=== PATIENT | male | born 2000 | race Caucasian/White ===

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

== ENCOUNTER 2019-01-27 13:18 | Emergency (ER) | payer OTHER ==
[2019-01-27 13:23] VITALS: BP 110/62; PULSE 90; TEMP 98.4; BMI 25.8
--- NOTE | 2019-01-27 15:12 | PDOC ---
History of Present Illness - General Chief Complaint: Headache Stated Complaint: HEAD HURT Time Seen by Provider: 01/27/19 14:56 History Source: Patient Exam Limitations: No Limitations Past History - Past Medical History Allergies/Adverse Reactions: Allergies Allergy/AdvReac Type Severity Reaction Status Date / Time peanut Allergy Verified 01/27/19 13:23 shellfish derived Allergy Verified 01/27/19 13:23 Home Medications: Ambulatory Orders NK [No Known Home Medication] 09/27/16 Asthma: Yes COPD: No - Immunization History Immunization Up to Date: Yes - Psycho Social/Smoking Cessation Hx Smoking History: Never smoked Have you smoked in the past 12 months: No Information on smoking cessation initiated: No Hx Alcohol Use: No Drug/Substance Use Hx: No *Physical Exam - Vital Signs Last Vital Signs Temp Pulse Resp BP Pulse Ox 98.4 F 90 17 110/62 99 01/27/19 13:20 01/27/19 13:20 01/27/19 13:20 01/27/19 13:20 01/27/19 13:20 - Physical Exam General Appearance: No: Apparent Distress HEENT: positive: Other (no evidence of head trauma) Neck: positive: Supple. negative: Decreased range of motion, Tender midline Respiratory/Chest: positive: Lungs Clear, Normal Breath Sounds. negative: Respiratory Distress Cardiovascular: positive: Regular Rhythm, Regular Rate, S1, S2. negative: Murmur Neurologic: positive: head of physics II-XII NML intact, Fully Oriented, Alert, Normal Mood/ Affect, Motor Strength 5/5 Medical Decision Making - Medical Decision Making 18 y/o M hx of asthma presents with DUKES x 1 week s/p shelf fell on head last week. Patient was [facility] in [facility] week and was told he had concussion; patient was given Motrin which helped with pain. Has not tried taking anything for pain since then. Patient came in with mother to see if he needed CT scan of head. Denies fever, sob, cp, abd pain, vomiting, visual/gait changes, numbness/tingling/weakness of extremities, LOC. Patient with no focal deficits on exam Patient meets none of [place] head CT rules Family reassured Patient does not want Motrin currently; state will take at home 01/27/19 15:08 Discharge - Discharge Information Problems reviewed: Yes Clinical Impression/Diagnosis: Post-traumatic headache Qualifiers: Headache chronicity pattern: acute headache Intractability: not intractable Qualified Code(s): G44.319 - Acute post-traumatic headache, not intractable Condition: Stable Disposition: HOME - Admission No - Additional Discharge Information Prescription Drug Monitoring Program (I-STOP) results: I-STOP not reviewed - Follow up/Referral - Patient Discharge Instructions Patient Printed Discharge Instructions: DI for Post-traumatic Headache Additional Instructions: Thank you for choosing [facility]. It was a pleasure taking care of you. You may take Tylenol 650 mg or Motrin 600 mg every 6 hours by mouth as needed for mild to moderate pain. Take Motrin with food. Do not take more than 4000 mg of Tylenol in 1 day. Return to the Emergency Department if your symptoms worsen or persist, you have vomiting, weakness of extremities (arms and/or legs), changes in vision or walking or other concerning symptoms. - Post Discharge Activity Work/Back to School Note: Back to Work
== END 2019-01-27 15:28 | disposition home or self-care (01) ==
LOC: JERFT 13:18
DX: G44.319 Acute post-traumatic headache, not intractable (principal); W20.8XXD Other cause of strike by thrown, projected or falling object, subsequent encounter; J45.909 Unspecified asthma, uncomplicated; Z91.013 Allergy to seafood; Z91.010 Allergy to peanuts
CPT/HCPCS: 99281-25

== ENCOUNTER 2019-05-31 20:39 | Emergency (ER) | payer OTHER ==
[2019-05-31 20:58] VITALS: BMI 25.8
--- NOTE | 2019-05-31 20:59 | PDOC ---
Rapid Medical Evaluation Chief Complaint: Respiratory Time Seen by Provider: 05/31/19 20:53 Medical Evaluation: Allergies Allergy/AdvReac Type Severity Reaction Status Date / Time peanut Allergy Verified 01/27/19 13:23 shellfish derived Allergy Verified 01/27/19 13:23 05/31/19 20:55 I have performed a brief in-person evaluation of this patient. The patient presents with a chief complaint of: h/o Asthma presenting with complains of wheezing and SOB since this AM which improved . pt saw PCP today and being treated with zpak, singulair and Tylenol for URI but report has not been working for him so he came to ER. pt report flu test was done by PCP today and pending results from lab. pt has a bottle of Tylenol prescribed for PCP with him Pertinent physical exam findings: fever of 102F. lungs CTAB. no wheezing I have ordered the following: nothing The patient will proceed to the ED for further evaluation. Discharge Disposition - Diagnosis Fever Qualifiers: Fever type: unspecified Qualified Code(s): R50.9 - Fever, unspecified - Discharge Dispostion Condition at time of disposition: Stable - Referrals - Patient Instructions - Post Discharge Activity
[2019-05-31] MEDS ORDERED: IBUPROFEN 400 MG TABLET (FP) PO ONE ×2 (23:00→23:28)
--- NOTE | 2019-05-31 23:00 | PDOC ---
History of Present Illness - General Chief Complaint: Respiratory Stated Complaint: FLU SYMPTOMS Time Seen by Provider: 05/31/19 20:53 History Source: Patient - History of Present Illness Initial Comments: 05/31/19 23:18 18 year old male c/o fever, nasal congestion, Feeling weak. Patient reported that he was diagnosed with the flu at the doctor's office this morning. Patient has a prescription for azithromycin, Robitussin, Singulair, Tylenol. Patient reports that he only took Tylenol at 4 PM. Denies nausea, vomiting, abdominal pain patient reports throat pain Past History - Past Medical History Allergies/Adverse Reactions: Allergies Allergy/AdvReac Type Severity Reaction Status Date / Time peanut Allergy Verified 05/31/19 20:58 shellfish derived Allergy Verified 05/31/19 20:58 Home Medications: Ambulatory Orders Albuterol Sulfate Inhaler - [Ventolin HFA Inhaler -] 1 - 2 inh PO Q4H PRN #1 inhaler 06/01/19 Asthma: Yes COPD: No - Immunization History Immunization Up to Date: Yes - Psycho Social/Smoking Cessation Hx Smoking History: Never smoked Have you smoked in the past 12 months: No Hx Alcohol Use: No Drug/Substance Use Hx: No Review of Systems - Review of Systems Able to Perform ROS?: Yes Is the patient limited Taiwanese proficient: No Constitutional: Yes: Fever HEENTM: Yes: Nose Congestion, Throat Pain Respiratory: Yes: Cough Cardiac (ROS): Yes: Chest Tightness. No: Symptoms Reported, See HPI, Chest Pain , Edema, Irregular Heart Rate, Lightheadedness, Palpitations, Syncope, Other *Physical Exam - Vital Signs Last Vital Signs Temp Pulse Resp BP Pulse Ox 102.9 F H 130 H 20 129/70 98 05/31/19 20:53 05/31/19 20:53 05/31/19 20:53 05/31/19 20:53 05/31/19 20:53 - Physical Exam General Appearance: Yes: Appropriately Dressed HEENT: positive: Pharyngeal Erythema Respiratory/Chest: positive: Lungs Clear, Normal Breath Sounds Cardiovascular: positive: Tachycardia Gastrointestinal/Abdominal: positive: Normal Bowel Sounds, Soft. negative: Tender Extremity: positive: Normal Capillary Refill, Normal Inspection, Normal Range of Motion Integumentary: positive: Normal Color, Dry, Warm Neurologic: positive: Fully Oriented, Alert, Normal Mood/Affect ED Progress Note - Progress Note Progress Note: A: Bronchitis P: continue meds given by pcp chest xray; no acute disease PCP follow up Discharge - Discharge Information Problems reviewed: Yes Clinical Impression/Diagnosis: URI (upper respiratory infection) Qualifiers: URI type: unspecified URI Qualified Code(s): J06.9 - Acute upper respiratory infection, unspecified Condition: Stable Disposition: HOME - Additional Discharge Information Prescriptions: Albuterol Sulfate Inhaler - [Ventolin HFA Inhaler -] 1 - 2 inh PO Q4H PRN #1 inhaler PRN Reason: Cough - Follow up/Referral Referrals: ON STAFF,NOT [Primary Care Provider] - - Patient Discharge Instructions Patient Printed Discharge Instructions: DI for Acute Bronchitis Additional Instructions: Drink plenty of fluids. Take Robitussin, azithromycin, Singulair, Tylenol as prescribed by your doctor Take Tylenol every 4-6 hours as needed for fever Take ibuprofen every 6 hours as needed for fever Your chest x-ray did not show any pneumonia. You are being treated for bronchitis. You were given a prescription for albuterol inhaler. Use every 4 hours as needed for cough and chest tightness. Return to the emergency room for any worsening symptoms - Post Discharge Activity Work/Back to School Note: Back to Work, Back to School
[2019-05-31] MEDS ORDERED: ALBUTEROL SO4 2.5/IPRATROPIUM 0.5 INH SOL 3 ML VIAL.NEB. NEB ONE (23:26)
[2019-06-01 00:34] VITALS: BP 140/70; PULSE 96; TEMP 99.3
== END 2019-06-01 00:35 | disposition home or self-care (01) ==
LOC: JERFT 20:39
PROC: 3E0F7GC Introduction of Other Therapeutic Substance into Respiratory Tract, Via Natural or Artificial Opening (ICD-10-PCS; principal; 2019-05-31)
DX: J06.9 Acute upper respiratory infection, unspecified (principal)
CPT/HCPCS: 71046-TC-FY; 94640; 99281-25

== ENCOUNTER 2022-09-25 10:01 | Emergency (ER) | payer OTHER ==
[2022-09-25 10:16] VITALS: BP 147/79; PULSE 94; RESP 18; TEMP 99.2; BMI 29.4
[2022-09-25] MEDS ORDERED: IBUPROFEN 600 MG TABLET (FP) PO ONE ×2 (11:03→11:15)
== END 2022-09-25 12:55 | disposition home or self-care (01) ==
LOC: JERFT 10:01
DX: M25.572 Pain in left ankle and joints of left foot (principal); R22.42 Localized swelling, mass and lump, left lower limb; W10.8XXA Fall (on) (from) other stairs and steps, initial encounter; Y99.0 Civilian activity done for income or pay
CPT/HCPCS: 73610-TC-LT-FY; 99283-25